=== PATIENT | female | born 1970 | race American Indian/Alaskan Native ===

== ENCOUNTER → 2024-12-29 | Outpatient (CLI) | payer MEDICAID, SELFPAY ==
--- NOTE | 2024-12-29 09:26 | XR_ITS ---
Examination: Right knee 4 views Technique: AP oblique lateral axial right knee 4 views Date and time: December 21, 2024 0958 hrs. Indications: Right knee pain beginning one year ago. Findings: Mild to moderate tricompartment osteoarthritis most prominent lateral joint space No fracture No patellar dislocation Impression: Mild to moderate tricompartment osteoarthritis
== END | disposition home or self-care (01) ==
PROVIDERS: PCP Nurse Practitioner Family; Referring Provider Nurse Practitioner Family; Visit Provider Nurse Practitioner Family
DX: M17.11 Unilateral primary osteoarthritis, right knee (principal)
CPT/HCPCS: 73564

== ENCOUNTER → 2025-02-27 | Outpatient (CLI) | payer MEDICAID, SELFPAY ==
--- NOTE | 2025-02-27 10:00 | XR_ITS ---
Examination: Breast ultrasound, unilateral, left complete Date and time of exam: February 27, 2025, 1006 hours INDICATIONS: Bilateral breast sonography May 28, 2022 BI-RADS 4 suspicious mass 2 o'clock position left breast, left breast sonogram July 31, 2022 BI-RADS Category 2 left breast 2:00 glandular tissue Technique: Real-time clancy scale ultrasonographic imaging performed left breast including all 4 quadrants as well as nipple retroareolar and axillary region. Findings: No cystic or solid mass noted, 3:00 glandular tissue IMPRESSION: BI-RADS Category 1: Negative study
--- NOTE | 2025-02-27 11:00 | XR_ITS ---
Examination: Diagnostic digital mammography, bilateral Computer aided detection 3-D breast Tomosynthesis, bilateral Date and time of exam: February 27, 2025, 1025 hours INDICATIONS: Screening mammogram February 20, 2022 asymmetry lower left breast, mammogram May 28, 2022 focal asymmetry 2 o'clock position left breast Technique: Nonmagnified MLO, CC views of the breasts to been obtained, reconstructed from 3-D Tomosynthesis images. R2 computer aided detection program utilized for evaluation of suspicious masses and/or abnormal calcifications. 3-D Tomosynthesis images obtained. Findings: Scattered areas of fibroglandular density Stable focal asymmetry outer left breast on the cc view No interval suspicious masses Impression: BI-RADS Category 2: Benign findings Recommend yearly follow-up mammography.
== END | disposition home or self-care (01) ==
LOC: CDIM 09:25
PROVIDERS: PCP Nurse Practitioner Family; Referring Provider Nurse Practitioner Family; Visit Provider Nurse Practitioner Family
DX: R92.323 Mammographic fibroglandular density, bilateral breasts (principal)
CPT/HCPCS: 76641; 77062; 77066; G0279